=== PATIENT | female | born 1970 | race Caucasian/White ===

== ENCOUNTER 2016-10-30 17:01 | Emergency (ER) | payer OTHER ==
[~2016-10-30] VITALS: Ht 167.6 cm; Wt 83.5 kg
[2016-10-30 17:05] VITALS: Ht 167.6 cm; Wt 83.5 kg
[2016-10-30] MEDS ORDERED: ACETAMINOPHEN 500 MG TAB PO STA (17:13)
[2016-10-30] MEDS ORDERED: IBUPROFEN 600 MG TAB PO ONE (17:30)
[2016-10-30 18:16] LABS: URINE BLOOD (Dip) POC 3+ (NEGATIVE)
[2016-10-30] MEDS ORDERED: CIPR500T4 PO (18:22)
[2016-10-30] MEDS ORDERED: IBUP-1542 PO (18:22)
[2016-10-30] MEDS ORDERED: ACET500C5 PO (18:22)
--- NOTE | 2016-10-30 18:29 | ERD ---
ER Documentation Chief Complaint Date/Time DATE: 10/30/16 TIME: 18:27 Chief Complaint FLU LIKE SYMPTOMS X 2 DAYS HPI This 46-year-old female presents with fever since yesterday. She has mild bitemporal headache but no photophobia, visual changes, neck symptoms. She denies cough, sore throat, current nausea vomiting, abdominal pain, urinary complaints. She did have one episode this morning vomiting number somebody after taking Tylenol but denies any nausea currently. ROS All systems reviewed and are negative except as per history of present illness. Medications Home Meds Active Scripts Acetaminophen* (Tylophen*) 500 Mg Capsule, 1 CAP PO Q6H Y for PAIN AND OR ELEVATED TEMP, #15 CAP Prov:CATHERINE AVELAR MD 10/30/16 Ciprofloxacin Hcl* (Ciprofloxacin Hcl*) 500 Mg Tablet, 500 MG PO BID for 7 Days , TAB Prov:CATHERINE AVELAR MD 10/30/16 Ibuprofen* (Motrin*) 600 Mg Tab, 600 MG PO Q6, #15 TAB Prov:CATHERINE AVELAR MD 10/30/16 Allergies Allergies: Coded Allergies: No Known Allergy (Unverified , 10/30/16) PMhx/Soc Hx Alcohol Use: No Hx Substance Use: No Hx Tobacco Use: No Physical Exam Vitals Vital Signs Date Time Temp Pulse Resp B/P Pulse Ox O2 Delivery O2 Flow Rate FiO2 10/30/16 17:05 103.2 110 22 187/101 99 Physical Exam Const: []Alert, pleasant, not ill-appearing. Head: Atraumatic Eyes: Normal Conjunctiva ENT: Normal External Ears, Nose and Mouth. Neck: Full range of motion..~ No meningismus. Resp: Clear to auscultation bilaterally Cardio: Regular rate and rhythm, no murmurs Abd: Soft, non tender, non distended. Normal bowel sounds Skin: No petechiae or rashes Back: No midline or flank tenderness Ext: No cyanosis, or edema Neur: Awake and alert Psych: Normal Mood and Affect Results 24 hrs Laboratory Tests Test 10/30/16 18:22 Bedside Urine pH (LAB) 5.5 Bedside Urine Protein (LAB) 3+ Bedside Urine Glucose (UA) Negative Bedside Urine Ketones (LAB) Negative Bedside Urine Blood 3+ Bedside Urine Nitrite (LAB) Positive Bedside Urine Leukocyte Esterase (L 1+ Current Medications Medications (Trade) Dose Ordered Sig/Сергей Route PRN Reason Start Time Stop Time Status Last Admin Dose Admin Ibuprofen (Motrin) 600 mg ONCE ONCE PO 10/30/16 17:30 10/30/16 17:31 DC 10/30/16 17:22 Acetaminophen (Tylenol Tab) 500 mg ONCE STAT PO 10/30/16 17:13 10/30/16 17:15 DC 10/30/16 17:24 Ceftriaxone Sodium (Rocephin) 1 gm ONCE ONCE IM 10/30/16 18:30 10/30/16 18:31 Lidocaine (Xylocaine 1% (Mdv) 20 ml) 20 ml ONCE ONCE SC 10/30/16 18:30 10/30/16 18:31 Procedures/MDM Patient presents with febrile illness with normal exam and no other symptoms currently. Urine shows positive leukocytes, nitrates and hemoglobin. Urine was sent for culture. Patient is given ibuprofen and Tylenol for fever control given Rocephin 1 g IM and urine was sent for culture.. Patient will be treated with fever control and Cipro at home instructions to recheck for fever over additional 48 hours, sooner for vomiting, shortness breath, new worsening symptoms with primary care doctor. Departure Diagnosis: Primary Impression: UTI (urinary tract infection) Urinary tract infection type: acute cystitis Hematuria presence: without hematuria Qualified Code: N30.00 - Acute cystitis without hematuria Additional Impression: Fever Fever type: unspecified Qualified Code: R50.9 - Fever, unspecified fever cause Condition: Stable Patient Instructions: Understanding Urinary Tract Infections (UTIs), Fever Control (Adult) Additional Instructions: Urine shows signs of infection and we will treat for this, but May be viral illness which may last 3-5 days. Take Tylenol every 4 hours and ibuprofen every 6 hours for fever. Recheck a fever over additional 48 hours, sooner for shortness of breath, vomiting, abdominal pain, new or worsening symptoms. CATHERINE AVELAR MD Oct 30, 2016 18:29
[2016-10-30] MEDS ORDERED: LIDOCAINE 1% (MDV) 20 ML INJ SC ONE (18:30)
[2016-10-30] MEDS ORDERED: CEFTRIAXONE 1 GM INJ IM ONE (18:30)
[2016-10-30 18:43] VITALS: BP 165/86; PULSE 71; RESP 21; TEMP 100.1
== END 2016-10-30 18:44 | disposition home or self-care (01) ==
LOC: FTE 17:01
DX: N30.00 Acute cystitis without hematuria (principal)
CPT/HCPCS: 81003; 96372; J0696; Z7502; Z7610

== ENCOUNTER 2017-09-04 23:51 | Emergency (ER) | END 2017-09-05 03:51 | disposition home or self-care (01) ==